=== PATIENT | male | born 1990 ===

== ENCOUNTER 2024-11-09 12:50 | Outpatient (AMB) | payer OTHER, SELFPAY ==
--- NOTE | 2024-11-09 12:57 | A.OFFPC_ITS ---
Vital Signs 11/09/24 12:59 Height 5 ft 7 in Weight 153 lb BMI 24.0 BP 120/80 Blood Pressure Location Lt brachial Position Sitting Pulse 57 Pulse Source Pulse Oximeter Pulse Oximetry (%) 98 Oxygen Delivery Method Room Air Intake Visit Reasons: establish [facility] [employer] Internship Required: No Accompanied by: Self / Same As Patient Allergies No Known Allergies Allergy (Verified 11/09/24 13:14) Medication List - Last Reconciled 11/09/24 by DAMION Bass No Known Home Meds Tobacco use date assessed: 11/09/24 Dental Screening Dental Screen Date: 11/09/24 Did you have a dental visit in the last 12 months?: Yes Did you have a dental problem in the last 6 months where you did not have access to dental care?: No Was dental information given to patient?: Patient has dentist HPI [facility] HPI Details Previous PCP: in a while Last visit: Last PE: cannot remember Specialist:GI for IBS-20 years OBGYN:n/a Past medical history: IBS, asthma Medications:n/a Family HX:n/a Problem: The patient is a 34-year-old male presenting [facility] Reports that he has not been to a doctor in a while reports he has a cough that he cannot get rid of Reports that last month he had the flu in mid September-the cough went away now it is coming back Reports using mucinex, robitussion, and an inhaler from his Reports nasal congestion: recently it slowed down some He denies sore throat, denies sinus pressure, denies body aches He denies abdominal pain, heartburn, diarrhea or constipation [facility] Medical History (Updated 11/11/24 @ 05:21 by DAMION Bass) Asthma IBS (irritable bowel syndrome) Family History Other Alzheimer disease Diabetes FH: mental illness Social History Housing: House Patient Tobacco Use Status: Never used Tobacco e-Cigarette/Vaping Use: Never Used service: No Current occupational status: employed Current occupational exposures/hazards: No Cognitive needs: No Hearing needs: No Vision needs: No Questionnaire PHQ-9 Over the last 2 weeks, how often have you been bothered by any of the following problems? 1. Little interest or pleasure in doing things: not at all 2. Feeling down, depressed, or hopeless: not at all 3. Trouble falling or staying asleep, or sleeping too much: not at all 4. Feeling tired or having little energy: not at all 5. Poor appetite or overeating: not at all 6. Feeling bad about yourself - or that you are a failure or have let yourself or your family down: not at all 7. Trouble concentrating on things, such as reading the newspaper or watching television: not at all 8. Moving or speaking so slowly that other people could have noticed. Or the opposite - being so fidgety or restless that you have been moving around a lot more than usual: not at all 9. Thoughts that you would be better off or of hurting yourself in some way: not at all Total score: 0 Depression Screening Interpretation: Negative Depression Screening Done: Yes 63947 - PHQ-9 Billing: Yes Source: Developed by Drs. Bahman Anderson, Vilma Harmon, Jonathan Ochoa and colleagues, with an educational shannon from [employer]. Thrive Questionnaire Date Thrive assessed: 11/09/24 I am a: Patient What is your living situation today?: I have a steady place to live Within the past 12 months, did the food you bought not last and you didn't have the money to get more?: Never true Within the past 12 months, did you worry whether your food would run out before you got money to buy more?: Never true Do you have trouble paying for medicines?: No Do you have trouble getting transportation to medical appointments?: No Do you have trouble paying your heating and electricity bill?: No Do you have trouble taking care of your child, family member or friend?: No Do you have trouble with day-to-day activities such as bathing, preparing meals, shopping, managing finances, etc.?: No Are you currently unemployed and looking for a job?: No Are you interested in more education?: I choose not to answer this question Please select the resources that you would like help with: None Currently or been in a relationship where the following occur: No concerns reported THRIVE Score: 0 AUDIT C Alcohol Use Questionnaire (AUDIT-C) 1. How often do you have a drink containing alcohol?: Monthly or less 2. How many drinks containing alcohol do you have on a typical day when you are drinking?: 1 or 2 3. How often do you have six or more drinks on one occasion?: Never Total Score: 1 JUJU-7 AMB Questionnaire JUJU-7 Date JUJU - 7 assessed: 11/09/24 Feeling nervous, anxious, or on edge: 0 = Not at all Not being able to stop or control worryin = Not at all Worrying too much about different things: 0 = Not at all Trouble relaxin = Not at all Being so restless that it is hard to sit still: 0 = Not at all Becoming easily annoyed or irritable: 1 = Several days Feeling afraid as if something awful might happen: 0 = Not at all Total JUJU-7 score (0-4 normal; 5-9 mild; 10-14 moderate; 15-21 severe): 1 Source: Developed by Drs. Bahman Anderson, Vilma Harmon, Jonathan Ochoa and colleagues, with an educational shannon from [employer]. JUJU-7 Assessment Billing JUJU-7 Assessment Tool: JUJU-7 Assessment 54688 Review of Systems Const Details: Denies chills, Denies fatigue, Denies fever(s), Denies headache(s) and Denies weakness HEENT Denies change in vision, Denies dizziness, Denies headache(s), Denies hearing loss, + nasal congestion, Denies sinus pain, Denies sinus pressure and Denies sore throat Card Denies chest pain, Denies lightheadedness, +dyspnea(intermittently) and Denies other (palpitations) Resp +cough, +dyspnea (intermittently) and Denies wheezing GI Denies abdominal pain, Denies melena, Denies hematochezia, Denies change in bowel habits, Denies dyspepsia and Denies nausea Denies hematuria and Denies dysuria Musc Denies abnormal gait, Denies myalgias, Denies arthralgias, Denies numbness and Denies tingling Skin/Breast Denies rash, Denies unusual bruising and Denies wounds Neuro Denies abnormal gait, Denies dizziness, Denies headache(s), Denies memory loss, Denies numbness, Denies Sensory deficit (Neuro), Denies tingling and Denies weakness Psych Denies anxiety, Denies depression and Denies memory loss Endo Denies cold intolerance, Denies fatigue, Denies heat intolerance, Denies polydipsia and Denies polyuria Eduard/Lymph Denies easy bleeding and Denies easy bruising Aller/Immun Denies wheezing Physical exam (Primary Care) Vital Signs: Last Vital Signs Pulse 57 11/09/24 12:59 BP 120/80 11/09/24 12:59 Pulse Ox 98 11/09/24 12:59 Oxygen Delivery Method Room Air 11/09/24 12:59 BMI result Body Mass Index 24.0 Tobacco/Smoking Status: Tobacco use Status Tobacco use date assessed 11/09/24 11/09/24 13:03 Patient Tobacco Use Status Never used Tobacco 11/09/24 13:03 e-Cigarette/Vaping Use Never Used 11/09/24 13:03 PHQ-9: PHQ-9 Score PHQ-9: Total score 0 11/09/24 13:22 Depression Screening Interpretation: Negative Thrive Assessment: Date of Thrive Assessment Date Thrive assessed 11/09/24 11/09/24 13:03 Currently or been in a relationship where the following occur: No concerns reported Const Other: General: no acute distress, well developed, alert and awake Nutritional Appearance: well nourished Orientation/consciousness: patient oriented x3 HENMT Head: Yes normocephalic and Yes atraumatic Ears: hearing grossly normal bilaterally and TM's normal, bilaterally small amount of dried up wax General nose exam: Normal external nose present and Normal erythema with boggy turbinates, left nare with yellowish drainage Mouth: Normal oral and palatal mucosa present and moist mucous membranes Teeth and gingiva: dentition normal Throat: Yes oropharynx normal Eyes Pupils: Equal, round and reactive pupils present and Pupil accommodation reflex normal EOM: EOMs intact bilaterally Neck Neck: Yes normal visual inspection, Yes no lymphadenopathy and Yes trachea midline Thyroid: Thyroid normal Chest Chest palpation & inspection: normal inspection of the chest Resp Effort & Inspection: normal respiratory effort Auscultation: clear to auscultation bilaterally Cardio Rate: regular rate Rhythm: regular rhythm Heart sounds: S1 normal heart sound present, S2 normal heart sound present, no gallops, no murmurs and no rubs GI Palpation (GI): Abdominal soft and nontender to palpation Auscultation: normal bowel sounds General: Yes no CVA tenderness Back/Spine/Pelvis Back: no CVA tenderness Cervical Spine: cervical ROM normal and No Cervical spine tenderness Thoracic/Lumbar Spine: No thoracic spinal tenderness and No lumbar spinal tenderness Skin General: warm and dry. Normal skin color. Normal skin turgor Lesions: no lesions Nails: normal Neuro General: patient oriented x3, gait normal Cranial nerves: Yes Equal, round and reactive pupils present Cognition (Neuro): normal cognition Gait exam (Neuro): Normal gait present Extrem General: Yes normal to inspection, No edema and No calf tenderness Psych Appearance: grossly normal Affect: normal affect Attitude: cooperative Thought process: Normal thought process present Coding Level of Care Code New Pt Level 4 (69237) Diagnoses Encounter to establish care with new provider Z76.89 Asthma, unspecified asthma severity, unspecified whether complicated, unspecified whether persistent J45.909 Asthma severity: unspecified severity Asthma persistence: unspecified Asthma complication type: unspecified Irritable bowel syndrome, unspecified type K58.9 Irritable bowel syndrome type: unspecified Nasal congestion R09.81 Cough, unspecified type R05.9 Cough type: unspecified Additional Codes PHQ-9 - 71982 - PHQ-9 Billing: Yes ([id number]) JUJU-7 Assessment Billing - JUJU-7 Assessment Tool: JUJU-7 Assessment 31180 ([id number]) Time Spent (min) 36 Assessment & Plan Assessment & Plan (1) Encounter to establish care with new provider: Code(s): Z76.89 - Persons encountering health services in other specified circumstances Category: Medical Plan: New patient establishing care. I have not seen a doctor or have been examined for quite some time. We will order labs and have the patient return for physical in 2 weeks. (2) Asthma: Code(s): J45.909 - Unspecified asthma, uncomplicated Category: Medical Qualifiers: Asthma severity: unspecified severity Asthma persistence: unspecified Asthma complication type: unspecified Qualified Code(s): J45.909 - Unspecified asthma, uncomplicated Plan: Patient reports that both his and son has asthma so he has been using his inhaler as needed Albuterol sulfate 90 mcg/actuation 2 puffs inhalation q.4-6 hours p.r.n. ordered (3) IBS (irritable bowel syndrome): Code(s): K58.9 - Irritable bowel syndrome, unspecified Category: Medical Qualifiers: Irritable bowel syndrome type: unspecified Qualified Code(s): K58.9 - Irritable bowel syndrome, unspecified Plan: Stable: Reports no issues at this time (4) Nasal congestion: Code(s): R09.81 - Nasal congestion Category: Medical Plan: Erythematous nasal passage with boggy turbinates, yellowish nasal secretion in left nare. Fluticasone propionate 50 mcg/actuation 1 spray intranasally b.i.d. ordered. Patient reports that he has Claritin OTC at home. Encouraged to start using an increase or fluids (5) Cough: Code(s): R05.9 - Cough, unspecified Category: Medical Qualifiers: Cough type: unspecified Qualified Code(s): R05.9 - Cough, unspecified Plan: Discussed with patient that his cough is most likely due to his nasal congestion that is causing postnasal drip and at times most likely triggering his asthma is as well Orders: Orders Comprehensive [place]. Panel Fast 11/09/24 Z00.00 - Encounter for general adult medical examination without abnormal findings Lipid Panel 11/09/24 Z00.00 - Encounter for general adult medical examination without abnormal findings Vitamin D 25-OH Total 11/09/24 Z00.00 - Encounter for general adult medical examination without abnormal findings TSH reflex Free T4 11/09/24 Z00.00 - Encounter for general adult medical examination without abnormal findings Complete Blood Count Auto Diff 11/09/24 Z00.00 - Encounter for general adult medical examination without abnormal findings Medications: New fluticasone propionate 50 mcg/actuation administer into each nostril 1 spray intranasal BID 16 grams 2RF albuterol sulfate 90 mcg/actuation 2 puffs inhalation Q4-6H PRN 8.5 grams 3RF shortness of breath or wheezing
[2024-11-09 12:59] VITALS: BP 120/80; PULSE 57; O2SAT 98; BMI 24.0
== END 2024-11-09 13:41 | disposition home or self-care (01) ==
PROVIDERS: PCP Pediatrics
DX: Z76.89 Persons encountering health services in other specified circumstances (principal); J45.909 Unspecified asthma, uncomplicated; K58.9 Irritable bowel syndrome, unspecified; R09.81 Nasal congestion; R05.9 Cough, unspecified

== ENCOUNTER → 2024-11-09 12:50 | Outpatient (BNVA) | payer OTHER, SELFPAY | PROVIDERS: PCP Pediatrics | DX: Z76.89 Persons encountering health services in other specified circumstances (principal); J45.909 Unspecified asthma, uncomplicated; K58.9 Irritable bowel syndrome, unspecified; R09.81 Nasal congestion; R05.9 Cough, unspecified | CPT/HCPCS: 96127 ==